=== PATIENT | male | born 1955 | race Caucasian/White ===

== ENCOUNTER 2020-02-15 11:03 | Emergency (ER) | payer MEDICARE ==
--- NOTE | 2020-02-15 11:46 | ER Document Report ---
ED Medical Screen (RME) - General Chief Complaint: Leg Pain Stated Complaint: LEFT LEG PAIN Time Seen by Provider: 02/15/20 11:40 - HPI Notes: 02/15/20 11:44 64-year-old male with a history of hypertension presents to the emergency room today for left leg pain that started approximately 2 days ago. Patient states that he recently drove from [place] last week and noticed his leg is becoming a little bit more red each day but did not start with any pain until 2 days ago. Patient states he intermittently has a "water blister" on the front of his leg that keeps leaking. Patient is not on any blood thinners, does not take any b daisy aspirin. Denies any history of DVTs or clotting disorders, recent surgery, cancer treatments. Denies any shortness of breath, chest pain, nausea vomiting or diarrhea. Denies any history of diabetes. Has not tried any warm soaks or cool compresses. Denies any numbness or tingling in his affected foot. I have greeted and performed a rapid initial assessment of this patient. A comprehensive ED assessment and evaluation of the patient, analysis of test results and completion of the medical decision making process will be conducted by additional ED providers. PHYSICAL EXAMINATION: GENERAL: Well-appearing, well-nourished and in no acute distress. LUNGS: No respiratory distress Musculoskeletal: Normal range of motion NEUROLOGICAL: Normal speech, normal gait. SKIN: Warm, Dry, normal turgor, no rashes or lesions noted. Left lower extremity with erythema induration and warmth to touch, Homans' sign positive on left. Distal pulses +2 bilaterally and equally 02/15/20 11:45 - Related Data Allergies/Adverse Reactions: Latex, Natural Rubber Allergy (Verified 02/15/20 11:43) Home Medications: BP meds Past Medical History - Social History Frequency of alcohol use: None Drug Abuse: None Physical Exam - Vital signs Vitals: Temp Pulse Resp BP Pulse Ox 99.2 F 66 16 162/65 H 97 02/15/20 11:29 02/15/20 11:29 02/15/20 11:02/15/20 11:02/15/20 11:29 Course - Vital Signs Vital signs: Temp Pulse Resp BP Pulse Ox 99.2 F 66 16 162/65 H 97 02/15/20 11:29 02/15/20 11:29 02/15/20 11:29 02/15/20 11:29 02/15/20 11:29
[2020-02-15 12:33] LABS: ABSOLUTE BASOPHILS # (AUTO) 0.1 10^3/uL (0.0-0.2); ABSOLUTE EOSINOPHILS # (AUTO) 0.1 10^3/uL (0.0-0.6); ABSOLUTE LYMPHOCYTES (AUTO) 0.6 10^3/uL (0.5-4.7); ABSOLUTE MONOCYTES (AUTO) 1.1 10^3/uL (0.1-1.4); ABSOLUTE NEUT (AUTO) 10.1 10^3/uL (1.7-8.2); BASOPHILS % (AUTO) 0.6 % (0-2); HEMATOCRIT 40.5 % (37.9-51.0); HEMOGLOBIN 13.8 g/dL (13.5-17.0); LYMPHOCYTES % (AUTO) 5.2 % (13-45); MEAN CORPUSCULAR HEMOGLOBIN 34.4 pg (27.0-33.4); MEAN CORPUSCULAR HGB CONC 34.2 g/dL (32.0-36.0); MEAN CORPUSCULAR VOLUME 101 fl (80-97); PLATELET COUNT 154 10^3/uL (150-450); RED BLOOD COUNT 4.02 10^6/uL (4.35-5.55); SEGMENTED NEUTROPHILS % (AUTO) 84.2 % (42-78); TOTAL CELLS COUNTED % (AUTO) 100 %
--- NOTE | 2020-02-15 12:42 | RADIOLOGY REPORT (SQ) ---
EXAM DESCRIPTION: TIBIA FIBULA LEFT IMAGES COMPLETED DATE/TIME: 02/15/2020 12:32 pm REASON FOR STUDY: redness to tib/fib, r/o osteo COMPARISON: None. NUMBER OF VIEWS: Two views. TECHNIQUE: Two radiographic images acquired of the left tibia and fibula to include the knee and ank le in at least one projection. LIMITATIONS: None. FINDINGS: MINERALIZATION: Normal. BONES: Total left knee arthroplasty. No evidence for hardware complication. Degenerative changes a t the left ankle. Plantar calcaneal spur. No evidence for erosions, destruction of bone, acute frac ture dislocation. No acute fracture or dislocation. No worrisome bone lesions. SOFT TISSUES: Soft tissue swelling. OTHER: No other significant finding. IMPRESSION: 1. Soft tissue swelling. 2. Total left knee arthroplasty. No evidence for hardware complications. 3. No acute osseous findings. Degenerative changes at the left ankle. 4. Calcaneal spur. TECHNICAL DOCUMENTATION: JOB ID: [id number] 2010 [employer]- All Rights Reserved Reading location - IP/workstation name: [email or web address]
[2020-02-15 12:53] LABS: ALBUMIN 3.9 g/dL (3.5-5.0); ALKALINE PHOSPHATASE 76 U/L (38-126); ANION GAP 7 (5-19); ASPARTATE AMINO TRANSFERASE 33 U/L (17-59); BILIRUBIN,DIRECT 0.2 mg/dL (0.0-0.4); BILIRUBIN,TOTAL 1.1 mg/dL (0.2-1.3); BLOOD UREA NITROGEN 14 mg/dL (7-20); CALCIUM 8.4 mg/dL (8.4-10.2); CARBON DIOXIDE 30 mmol/L (22-30); CHLORIDE 98 mmol/L (98-107); GLUCOSE 88 mg/dL (75-110); TOTAL PROTEIN 7.1 g/dL (6.3-8.2)
--- NOTE | 2020-02-15 13:10 | ER Document Report ---
ED Extremity Problem, Lower - General Chief Complaint: Leg Pain Stated Complaint: LEFT LEG PAIN Time Seen by Provider: 02/15/20 11:40 Notes: CHIEF COMPLAINT: Left anterior leg pain HPI: 64-year-old male with chronic lymphedema of the lower extremities presenting for redness and pain to the anterior left lower leg. States that he has had a small blistered area that comes and goes on the anterior left anterior chauhan. Normally it resolves on its own but it did not this time he has had increased pain and redness around the wound area with some drainage. No fever. Symptoms have been ongoing for the last 4 to 5 days. Patient did recently travel from [place] but denies posterior calf pain ROS: See HPI - all other systems were reviewed and are otherwise negative Constitutional: no fever : no dysuria Integumentary: + rash Allergy: no hives Musculoskeletal: + extremity pain or swelling Neurological: no numbness/tingling, no weakness MEDICATIONS: I agree with the patient medications as charted by the RN. ALLERGIES: I agree with the allergies as charted by the RN. PAST MEDICAL HISTORY/PAST SURGICAL HISTORY: Reviewed and agree as charted by RN. SOCIAL HISTORY: Reviewed and agree as charted by RN. FAMILY HISTORY: No significant familial comorbid conditions directly related to patient complaint EXAM: Reviewed vital signs as charted by RN. CONSTITUTIONAL: Alert and oriented and responds appropriately to questions. Well-appearing; well-nourished HEAD: Normocephalic; atraumatic EYES: PERRL; Conjunctivae clear, sclerae non-icteric ENT: normal nose; no rhinorrhea; moist mucous membranes NECK: Supple without meningismus; non-tender; no cervical lymphadenopathy, no masses CARD: RRR; no murmurs, no clicks, no rubs, no gallops; symmetric distal pulses RESP: Normal chest excursion without splinting or tachypnea; breath sounds clear and equal bilaterally; no wheezes, no rhonchi, no rales, pulse oximetry 98% on room air not hypoxic ABD/GI: Normal bowel sounds; non-distended; soft, non-tender, no rebound, no guarding; no palpable organomegaly or masses. BACK: The back appears normal and is non-tender to palpation, there is no CVA tenderness EXT: Normal ROM in all joints; non-tender to palpation; no cyanosis, no effus ions, bilateral lymphedema is noted SKIN: Normal color for age and race; warm; dry; good turgor; small ulcerated area on the anterior left lower mid tibial region draining serous fluid, slight erythema and increased warmth surrounding this. No fluctuant areas. No posterior calf pain. 2+ bilateral lymphedema is noted NEURO: Moves all extremities equally; Motor and sensory function intact PSYCH: The patient's mood and manner are appropriate. Grooming and personal hygiene are appropriate. MDM: 64-year-old male with chronic lymphedema with a small ulcerative area on the anterior left lower leg that I believe was developed a surrounding cellulitis. Will place patient on antibiotics. Initial screening orders through the triage process including a venous Doppler pending - Related Data Allergies/Adverse Reactions: Latex, Natural Rubber Allergy (Verified 02/15/20 11:43) Home Medications: BP meds Past Medical History - Social History Smoking Status: Former Smoker Frequency of alcohol use: None Drug Abuse: None Family History: Reviewed & Not Pertinent Physical Exam - Vital signs Vitals: Temp Pulse Resp BP Pulse Ox 99.2 F 66 16 162/65 H 97 02/15/20 11:29 02/15/20 11:29 02/15/20 11:29 02/15/20 11:29 02/15/20 11:29 Course - Re-evaluation Re-evalutation: 02/15/20 13:34 Doppler study negative for DVT will discharge home treating for cellulitis of the lower extremity follow-up PCP recheck - Vital Signs Vital signs: Temp Pulse Resp BP Pulse Ox 99.2 F 66 16 162/65 H 97 02/15/20 11:29 02/15/20 11:29 02/15/20 11:29 02/15/20 11:29 02/15/20 11:29 - Laboratory Result Diagrams: 02/15/20 12:10 02/15/20 12:10 Laboratory results interpreted by me: 02/15/20 02/15/20 12:10 12:10 WBC 12.0 H RBC 4.02 L MCV 101 H MCH 34.4 H Lymph % (Auto) 5.2 L Absolute Neuts (auto) 10.1 H Seg Neutrophils % 84.2 H Sodium 134.9 L Discharge - Discharge Clinical Impression: Cellulitis of leg, left, Chronic acquired lymphedema Wound of left leg Qualifiers: Encounter type: initial encounter Qualified Code(s): S81.802A - Unspecified open wound, left lower leg, initial encounter Condition: Stable Disposition: HOME, SELF-CARE Additional Instructions: Doppler study today was negative for blood clot. Take the antibiotics to treat the infection in the lower leg and follow-up with your primary care provider for reevaluation call for appointment Prescriptions: Cephalexin Monohydrate [Keflex 500 mg Capsule] 500 mg PO Q6H 7 Days #28 capsule
[2020-02-15] MEDS ORDERED: CEPHALEXIN 500 MG CAPSULE PO ONE (13:35)
--- NOTE | 2020-02-15 13:49 | RADIOLOGY REPORT (SQ) ---
EXAM DESCRIPTION: VENOUS UNILATERAL LOWER IMAGES COMPLETED DATE/TIME: 02/15/2020 12:25 pm REASON FOR STUDY: left lower leg swelling/redness COMPARISON: None. TECHNIQUE: Dynamic and static maldonado scale and color images acquired of the left leg venous system. Se lected spectral images acquired with additional compression and augmentation maneuvers. The contralat eral common femoral vein and saphenofemoral junction were also imaged. Images stored on PACS. LIMITATIONS: None. FINDINGS: COMMON FEMORAL: Normal phasicity, compression and augmentation. No visualized echogenic ma terial on maldonado scale. No defects on color images. FEMORAL: Normal compression and augmentation. No visualized echogenic material on maldonado scale. No defe cts on color images. POPLITEAL: Normal compression, augmentation. No visualized echogenic material on maldonado scale. No defec ts on color images. CALF VESSELS: Normal compression, augmentation. No visualized echogenic material on maldonado scale. No de fects on color images. GSV and SSV: Normal compression, augmentation. No visualized echogenic material on maldonado scale. No def ects on color images. ANY DEEP VENOUS INSUFFICIENCY: Not evaluated. ANY EVIDENCE OF POPLITEAL CYST: No. OTHER: No other significant finding. CONTRALATERAL COMMON FEMORAL VEIN AND SAPHENOFEMORAL JUNCTION: Normal phasicity, compression and augmentation. No visualized echogenic material on maldonado scale. No de fects on color images. IMPRESSION: NO EVIDENCE OF DVT OR SVT IN THE LEFT LEG. TECHNICAL DOCUMENTATION: JOB ID: [id number] 2010 [employer]- All Rights Reserved Reading location - IP/workstation name: [email or web address]
[2020-02-15 13:50] VITALS: BP 159/64
== END 2020-02-15 13:50 | disposition home or self-care (01) ==
LOC: ER 11:03
DX: S81.802A Unspecified open wound, left lower leg, initial encounter (principal); L03.114 Cellulitis of left upper limb; I89.0 Lymphedema, not elsewhere classified; M79.605 Pain in left leg; R21 Rash and other nonspecific skin eruption; M79.89 Other specified soft tissue disorders; X58.XXXA Exposure to other specified factors, initial encounter; Z87.891 Personal history of nicotine dependence; Z79.899 Other long term (current) drug therapy
CPT/HCPCS: 99285; 36415; 85025; 80053; 93971; 73590; A9270

== ENCOUNTER 2020-02-19 11:37 | Emergency (ER) | payer MEDICARE ==
--- NOTE | 2020-02-19 12:25 | ER Document Report ---
ED Medical Screen (RME) - General Chief Complaint: Leg Pain Stated Complaint: LEG PAIN Time Seen by Provider: 02/19/20 12:21 Mode of Arrival: Ambulatory Information source: Patient Notes: 64-year-old male presents to ED for continued pain and drainage from his left lower leg. He was seen a couple days ago started on Keflex. He states is not getting any better and it continues to drain profusely. He states he has never had drainage from his legs before the of the day when he was seen. He does not have any history of CHF. He does take blood pressure medicine. Denies history of diabetes. We will get blood work and have him seen again. I have greeted and performed a rapid initial assessment of this patient. A comprehensive ED assessment and evaluation of the patient, analysis of test results and completion of medical decision making process will be conducted by an additional ED providers. - Related Data Allergies/Adverse Reactions: Latex, Natural Rubber Allergy (Verified 02/15/20 11:43) Physical Exam - Vital signs Vitals: Temp Pulse Resp BP Pulse Ox 98.2 F 61 18 180/65 H 97 02/19/20 11:50 02/19/20 11:50 02/19/20 11:50 02/19/20 11:50 02/19/20 11:50 Course - Vital Signs Vital signs: Temp Pulse Resp BP Pulse Ox 98.2 F 61 18 180/65 H 97 02/19/20 11:50 02/19/20 11:50 02/19/20 11:50 02/19/20 11:50 02/19/20 11:50
[2020-02-19 13:29] LABS: ABSOLUTE BASOPHILS # (AUTO) 0.1 10^3/uL (0.0-0.2); ABSOLUTE EOSINOPHILS # (AUTO) 0.2 10^3/uL (0.0-0.6); ABSOLUTE MONOCYTES (AUTO) 1.2 10^3/uL (0.1-1.4); ABSOLUTE NEUT (AUTO) 4.9 10^3/uL (1.7-8.2); EOSINOPHILS % (AUTO) 2.8 % (0-6); HEMATOCRIT 39.4 % (37.9-51.0); HEMOGLOBIN 13.5 g/dL (13.5-17.0); LYMPHOCYTES % (AUTO) 13.2 % (13-45); MEAN CORPUSCULAR HEMOGLOBIN 34.3 pg (27.0-33.4); MEAN CORPUSCULAR HGB CONC 34.2 g/dL (32.0-36.0); MEAN CORPUSCULAR VOLUME 100 fl (80-97); MONOCYTES % (AUTO) 16.3 % (3-13); PLATELET COUNT 162 10^3/uL (150-450); RED BLOOD COUNT 3.92 10^6/uL (4.35-5.55); RED CELL DISTRIBUTION WIDTH 12.4 % (11.5-14.0); SEGMENTED NEUTROPHILS % (AUTO) 66.7 % (42-78); TOTAL CELLS COUNTED % (AUTO) 100 %; WHITE BLOOD COUNT 7.3 10^3/uL (4.0-10.5)
[2020-02-19 13:45] LABS: ALBUMIN 3.4 g/dL (3.5-5.0); ALKALINE PHOSPHATASE 97 U/L (38-126); ANION GAP 7 (5-19); ASPARTATE AMINO TRANSFERASE 33 U/L (17-59); BILIRUBIN,DIRECT 0.1 mg/dL (0.0-0.4); BILIRUBIN,TOTAL 0.5 mg/dL (0.2-1.3); BLOOD UREA NITROGEN 26 mg/dL (7-20); CALCIUM 8.3 mg/dL (8.4-10.2); CARBON DIOXIDE 26 mmol/L (22-30); CHLORIDE 104 mmol/L (98-107); GLUCOSE 81 mg/dL (75-110); POTASSIUM 4.6 mmol/L (3.6-5.0); TOTAL PROTEIN 6.5 g/dL (6.3-8.2)
--- NOTE | 2020-02-19 15:36 | ER Document Report ---
ED Extremity Problem, Lower - General Chief Complaint: Leg Injury Stated Complaint: LEG PAIN Time Seen by Provider: 02/19/20 14:50 Mode of Arrival: Ambulatory Information source: Patient Notes: Patient presents complaining of left lower extremity pain for the past 9 days. Patient states leg has been swollen and erythematous. Patient states that wound on his legs have been weeping. Patient denies any fever. Patient was seen here 4 days ago and diagnosed with cellulitis after having a negative x-ray and negative Doppler study. Patient was started on Keflex. Patient reports that wounds seem to be larger and continually weeping. Patient denies any trauma. Patient denies any chest pain or dyspnea. - HPI Patient complains to provider of: Pain, Swelling Location: Leg Occurred: Other - 9 days Onset/Duration: Persistent Quality of pain: Achy Pain Level: 2 Associated symptoms: denies: Chest pain, Fever, Unable to bear weight Exacerbated by: Nothing Relieved by: Nothing - Related Data Allergies/Adverse Reactions: Latex, Natural Rubber Allergy (Verified 02/15/20 11:43) Past Medical History - General Information source: Patient - Social History Smoking Status: Former Smoker Chew tobacco use (# tins/day): No Frequency of alcohol use: Heavy Drug Abuse: None Occupation: None Lives with: Family Family History: Reviewed & Not Pertinent Patient has homicidal ideation: No - Past Medical History Cardiac Medical History: Reports: Hx Hypertension Musculoskeletal Medical History: Reports Hx Gout Past Surgical History: Reports: Hx Orthopedic Surgery, Other - Abscess Review of Systems - Review of Systems Constitutional: Recent illness - Cellulitis to left lower extremity. denies: Fever EENT: No symptoms reported Cardiovascular: No symptoms reported Respiratory: No symptoms reported Gastrointestinal: No symptoms reported. denies: Nausea, Vomiting Genitourinary: No symptoms reported. denies: Dysuria Male Genitourinary: No symptoms reported Musculoskeletal: Muscle pain - Left lower extremity. denies: Back pain Skin: Change in color - Redness to left lower extremity with weeping open wounds Hematologic/Lymphatic: No symptoms reported Neurological/Psychological: No symptoms reported Physical Exam - Vital signs Vitals: Temp Pulse Resp BP Pulse Ox 98.2 F 61 18 180/65 H 97 02/19/20 11:50 02/19/20 11:50 02/19/20 11:50 02/19/20 11:50 02/19/20 11:50 - General General appearance: Appears well, Alert In distress: None - HEENT Head: Normocephalic, Atraumatic Eyes: Normal Conjunctiva: Normal Nasal: Normal Mouth/Lips: Normal Mucous membranes: Normal - Respiratory Respiratory status: No respiratory distress Chest status: Nontender Breath sounds: Normal. No: Rales, Rhonchi, Stridor, Wheezing Chest palpation: Normal - Cardiovascular Rhythm: Regular Heart sounds: S1 appreciated, S2 appreciated - Abdominal Inspection: Morbidly Obese Distension: No distension Tenderness: Nontender - Back Back: Normal, Nontender - Extremities General upper extremity: Normal inspection, Normal strength General lower extremity: Normal strength Calf: Tender, Other - 2-3+ edema, erythema with weeping open wounds to left lower extremity Ankle: Nontender - Neurological Neuro grossly intact: Yes Cognition: Normal [place] Coma Scale Eye Opening: Spontaneous [place] Coma Scale Verbal: Oriented [place] Coma Scale Motor: Obeys Commands [place] Coma Scale Total: 15 - Psychological Associated symptoms: Normal affect, Normal mood - Skin Skin Temperature: Warm Skin Moisture: Dry Skin Color: Erythema - Erythema to left lower extremity with weeping open wounds to left lower leg Course - Re-evaluation Re-evalutation: 02/19/20 15:35 Spoke with Jorge Easley who evaluated patient during her last visit who does agree to look at patient's legs today. PCT states that patient was observed pulling skin off of the shallow ulcerations in the triage area. 02/19/20 18:12 Patient insisted on leaving at this time. Patient with improved lab work today as compared with patient's previous ER visit. Will cover with a different an tibiotic given concerns about continued cellulitis. Patient encouraged to keep wound covered and to cleanse with antibacterial soap. Patient advised that he could benefit from the consultation of a vascular surgeon when he returns home. Patient also advised that he should see a wound clinic for further management of his leg wounds. Patient states that he plans to drive home in 2 days and will make these appointments. Patient without any evidence of acute vascular emergency at this time. Will cover for continued cellulitis. Patient nontoxic in appearance and agreeable with discharge plan. - Vital Signs Vital signs: Temp Pulse Resp BP Pulse Ox 98.0 F 67 16 192/87 H 97 02/19/20 18:22 02/19/20 18:22 02/19/20 18:22 02/19/20 18:22 02/19/20 18:22 - Laboratory Result Diagrams: 02/19/20 12:55 02/19/20 12:55 Laboratory results interpreted by me: 02/19/20 02/19/20 12:55 12:55 RBC 3.92 L MCV 100 H MCH 34.3 H [place] % (Auto) 16.3 H BUN 26 H Calcium 8.3 L Albumin 3.4 L 02/19/20 22:07 Labs- All tests 24 hr 02/19/20 02/19/20 12:55 12:55 WBC 7.3 RBC 3.92 L Hgb 13.5 Hct 39.4 MCV 100 H MCH 34.3 H MCHC 34.2 RDW 12.4 Plt Count 162 Lymph % (Auto) 13.2 [place] % (Auto) 16.3 H Eos % (Auto) 2.8 Baso % (Auto) 1.0 Absolute Neuts (auto) 4.9 Absolute Lymphs (auto) 1.0 Absolute Monos (auto) 1.2 Absolute Eos (auto) 0.2 Absolute Basos (auto) 0.1 Seg Neutrophils % 66.7 Sodium 137.3 Potassium 4.6 Chloride 104 Carbon Dioxide 26 Anion Gap 7 BUN 26 H Creatinine 1.11 Est GFR ( Amer) > 60 Est GFR (MDRD) Non-Af > 60 Glucose 81 Calcium 8.3 L Total Bilirubin 0.5 Direct Bilirubin 0.1 Neonat Total Bilirubin Not Reportable Neonat Direct Bilirubin Not Reportable Neonat Indirect Bili Not Reportable AST 33 ALT 32 Alkaline Phosphatase 97 Total Protein 6.5 Albumin 3.4 L Discharge - Discharge Clinical Impression: Cellulitis of leg, left, Chronic acquired lymphedema Wound of left leg Qualifiers: Encounter type: initial encounter Qualified Code(s): S81.802A - Unspecified open wound, left lower leg, initial encounter Condition: Stable Disposition: HOME, SELF-CARE Instructions: Cellulitis ([facility]), Clindamycin ([facility]) Additional Instructions: Return immediately for any new or worsening symptoms Followup with your primary care provider, call tomorrow to make a followup appointment Follow-up with a vascular surgeon when you return home for an evaluation Follow-up with a wound care clinic, your primary doctor can make a referral for you for further management of your leg wounds. Keep wounds covered with a nonadherent dressing and change daily, monitor for any worsening signs of infection such as redness, purulent drainage, fever or any concerning new symptoms Prescriptions: Clindamycin HCl 300 mg PO QID #28 capsule
[2020-02-19] MEDS ORDERED: CLINDAMYCIN HCL 150 MG CAPSULE PO ONE (18:02)
[2020-02-19 18:23] VITALS: BP 192/87
--- NOTE | 2020-02-20 01:19 | RADIOLOGY REPORT (SQ) ---
EXAM DESCRIPTION: Left lower extremity arterial examination CLINICAL HISTORY: 64 years Male, LLE pain, swelling TECHNIQUE: Ultrasound of the arteries of the leg performed with grayscale, pulsed Doppler, mid and color Doppler. COMPARISON: None FINDINGS: Some images are labeled right however the right leg was not evaluated. 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 Similar elevation of velocity in the distal superficial femoral artery. No major branch vessel occlusions. Three vessel runoff to the ankle.
== END 2020-02-19 18:29 | disposition home or self-care (01) ==
LOC: ER 11:37
DX: L03.116 Cellulitis of left lower limb (principal); I89.0 Lymphedema, not elsewhere classified; S81.802A Unspecified open wound, left lower leg, initial encounter; X58.XXXA Exposure to other specified factors, initial encounter; I70.202 Unspecified atherosclerosis of native arteries of extremities, left leg; I10 Essential (primary) hypertension; Z87.891 Personal history of nicotine dependence; Z91.040 Latex allergy status
CPT/HCPCS: 99284; 36415; 85025; 80053; 93926; A9270